=== PATIENT | male | born 1950 | race Caucasian/White ===

== ENCOUNTER 2023-08-21 15:30 | Inpatient (IN) | payer MEDICARE, OTHER, SELFPAY ==
[2023-08-21] VITALS (31 sets, daily range): BP systolic 133–181; BP diastolic 82–97; PULSE 46–66; TEMP 36.9–37.1; O2SAT 97–100; BMI 23.0; BMI 22.7
--- NOTE | 2023-08-21 15:42 | ECG_ITS ---
[facility] Test Date: 2023-08-21 Pat Name: Mike Izaguirre Department: Room: - Gender: Male [employer]: : 1950 Requested By: JANA LEWIS Order Number: [id number] Reading MD: PRAMOD SQUIRES Measurements Intervals Rodney Rate: 47 P: 47 ID: 170 QRS: 84 QRSD: 94 T: 74 QT: 428 QTc: 392 Interpretive Statements 1130 Sinus bradycardia 9150 abnormal ECG No previous ECG available for comparison Electronically Signed On 08-21-2023 18:38:18 EDT by PRAMOD SQUIRES
--- NOTE | 2023-08-21 15:42 | CT_ITS ---
The [address] [address] Patient Name: MAGNOLIA HI MRN: [id number] date: 1950 Sex: M Assigned Patient Location: ER Current Patient Location: ER Accession/Order Number: [id number] Exam Date: 08/21/2023 16:31 Report Date: 08/21/2023 17:26 At the request of: ANDERSON ATWOOD Procedure: CT head/brain wo con EXAM: CT head/brain wo con HISTORY: Dizziness. TECHNIQUE: Axial CT scans through the head were obtained without IV contrast administration. Dose reduction techniques were achieved by using: automated exposure control and/or adjustment of mA and /or kV according to patient size and/or the use of an iterative reconstruction technique. COMPARISON: None. FINDINGS: The cerebral hemispheres have normal white and lopez matter and corticomedullary differentiation. To the limit of CT, the posterior fossa appears unremarkable. The ventricular system and cortical sulci are normal for the patient's age. No area of abnormal mass-effect or edema or intracranial hemorrhage. The visualized orbits show no abnormal mass. The visualized paranasal sinuses show no air-fluid level. Mastoid air cells are clear. CT/CT head/brain wo con IMPRESSION: No acute intracranial process. Electronically authenticated by: DAVID JOHNSTON Date: 08/21/2023 17:26
[2023-08-21] MEDS: 0.9 % SODIUM CHLORIDE 1,000 ML 1000 ML IV (15:50)
[2023-08-21] MEDS: DIAZEPAM 10 MG/2 ML SYRINGE 5 MG IV (15:51)
--- NOTE | 2023-08-21 15:53 | ED_ITS ---
HPI - Dizziness General Chief Complaint: Dizziness Stated Complaint: DIZZINESS/ GENERAL WEAKNESS Time Seen by Provider: 08/21/23 15:32 Source: patient Mode of arrival: ambulance Limitations: no limitations History of Present Illness HPI Narrative: Patient presents to ED complaining of dizziness. He states last Saturday he started with some vertigo symptoms. He has a history of M?ni?re's disease and states he can usually feel it coming on. Last Saturday it started mild and today its gotten much worse. He did talk to his doctor who prescribed him Valium and something else but he was not sure exactly what it was. He does complain of decreased hearing out of the left ear and feeling like it may be blocked up. He has been nauseous and had vomiting with the dizziness since then. He said he feels better laying flat. No fevers no chest pain or shortness of breath. He denies any neurological deficits such as difficulty with speech or any extremity weakness. He said he was diagnosed with M?ni?re's disease a long time ago, He cannot remember the last time he had any imaging of his head. Related Data Home Medications ?Medication ?Instructions ?Recorded ?Confirmed diazepam 5 mg tablet 5 mg PO DAILY 08/21/23 08/21/23 triamterene 37.5 1 tab PO DAILY 08/21/23 08/21/23 mg-hydrochlorothiazide 25 mg tablet Allergies Allergy/AdvReac Type Severity Reaction Status Date / Time No Known Drug Allergies Allergy Verified 08/21/23 15:32 Review of Systems ROS Status of ROS 10 or more systems reviewed and unremark able except as noted in history and below Exam Narrative Exam Narrative: Time Seen: [] Vital Signs: [Per nurse's notes.] General: [Alert] Skin: [Warm, dry, no rash.] Head: [Normocephalic, atraumatic.] Neck: [Supple, trachea midline.] Eye: [Pupils are equal, round and reactive to light, extraocular movements are intact, normal conjunctiva.] Ears, nose, mouth and throat: oral mucosa moist. Cardiovascular: [Regular rate and rhythm, no murmur.] Respiratory: [Lungs are clear to auscultation, respirations are non-labored, breath sounds are equal.] Chest wall: [No tenderness, no deformity.] Gastrointestinal: [Soft, nontender, non distended, normal bowel sounds.] K: 5 out of 5 muscle strength x 4 extremities no calf pain or edema Lymphatics: [No lymphadenopathy.] Psychiatric: [Cooperative, appropriate mood & affect.] Neurological: [Alert and oriented to person, place, time, and situation, no focal neurological deficit observed.] Constitutional Vital Signs, click to edit/add: Last Vital Signs Temp 98.4 F 08/21/23 15:33 Pulse 53 L 08/21/23 15:33 Resp 18 08/21/23 15:33 BP 160/90 H 08/21/23 15:33 Pulse Ox 99 08/21/23 15:33 O2 Del Method Room Air 08/21/23 15:33 Course Vital Signs Vital signs: Vital Signs Temperature 98.4 F 08/21/23 15:33 Pulse Rate 53 L 08/21/23 15:33 Respiratory Rate 18 08/21/23 15:33 Blood Pressure 160/90 H 08/21/23 15:33 Pulse Oximetry 99 08/21/23 15:33 Oxygen Delivery Method Room Air 08/21/23 15:33 Temperature 98.4 F 08/21/23 15:33 Pulse Rate 53 L 08/21/23 15:33 Respiratory Rate 18 08/21/23 15:33 Blood Pressure 160/90 H 08/21/23 15:33 Pulse Oximetry 99 08/21/23 15:33 Oxygen Delivery Method Room Air 08/21/23 15:33 MDM - Dizziness MDM Narrative Medical decision making narrative: Patient's labs show a decreased potassium and calcium. He does report that he has not been able to eat and drink much because of his dizziness causing so much vomiting. He also had slightly low blood sugar at 69. He said he feels may be slightly better after the IV Valium and fluids and was able to sit up a little bit once I sat him up to about 45 degrees he started to get woozy and dizzy again. Given the fact that his potassium and calcium are low as well as his sugar being borderline, I will admit him to the hospital for IV fluids, IV medication to help control the dizziness, and replacement of his potassium and calcium. I spoke to Vanna who agrees with the care plan. Patient is comfortable care plan and will be admitted inpatient to med/tele. NIH scale 0 Differential Diagnosis Differential diagnosis: Likely benign paroxysmal positional vertigo, cerebrovascular accident, acute vestibular neuronitis and transient cerebral ischemia Medical Records Attestation: I reviewed the patient's medical records. Lab Data Attestation: I reviewed the patient's lab results. Labs: Lab Results 08/21/23 Range/Units 16:26 WBC 7.9 (4.0-11.0) 10^3/uL RBC 3.25 L (4.70-6.10) 10^6/uL Hgb 10.2 L (14.0-18.0) g/dL Hct 29.0 L (42.0-54.0) % MCV 89.2 (80.0-94.0) fL MCH 31.4 (25.9-34.0) pg MCHC 35.2 (29.9-35.2) g/dL RDW 12.1 (11.0-15.0) % Plt Count 115 L (150-450) 10^3/uL MPV 8.7 L (9.5-13.5) fL Neut % (Auto) 90.6 H (43.0-75.0) % Lymph % (Auto) 5.7 L (20.5-60.0) % [place] % (Auto) 3.0 (1.7-12.0) % Eos % (Auto) 0.0 L (0.9-7.0) % Baso % (Auto) 0.1 L (0.2-2.0) % Neut # (Auto) 7.1 H (1.4-6.5) 10^3/uL Lymph # (Auto) 0.5 L (1.2-3.8) 10^3/uL [place] # (Auto) 0.2 L (0.3-0.8) 10^3/uL Eos # (Auto) 0.0 (0.0-0.7) 10^3/uL Baso # (Auto) 0.0 (0.0-0.1) 10^3/uL Abs Immat Gran (auto) 0.05 H (0.00-0.03) 10^3/uL Imm/Tot Granulo (auto) 0.6 H (0.0-0.5) % Sodium 144 (136-145) mmol/L Potassium 2.5 L* (3.5-5.1) mmol/L Chloride 117 H (98-107) mmol/L Carbon Dioxide 18.9 L (21.0-32.0) mmol/L Anion Gap 10.6 BUN 12.0 (7.0-18.0) mg/dL Creatinine 0.45 L (0.70-1.30) mg/dL Est GFR ( Amer) >60 (>=60) Est GFR (Non-Af Amer) >60 (>=60) BUN/Creatinine Ratio 26.7 Glucose 69 L (74-106) mg/dL Calcium 5.3 L* (8.5-10.1) mg/dL Total Bilirubin 0.5 (0.2-1.0) mg/dL AST 9 L (15-37) U/L ALT 13 L (16-63) U/L Alkaline Phosphatase 35 L (46-116) U/L Troponin I High Sens 5.8 (4.0-76.1) pg/mL Total Protein 3.5 L (6.4-8.2) g/dL Albumin 1.8 L (3.4-5.0) g/dL Globulin 1.7 g/dL Albumin/Globulin Ratio 1.[address] scan - head: Radiologist's impression: ITS Impressions Head CT 08/21/23 15:42 IMPRESSION: No acute intracranial process. Electronically authenticated by: DAVID JOHNSTON Date: 08/21/2023 17:26 ECG Data Attestation: I personally reviewed and interpreted this ECG as follows: Interpretation: EKG INTERPRETATION Time: []1552 Rate: []47 Rhythm: _ []Sinus bradycardia ST segments: _ []No acute ST elevation or depression T waves: _ [] Ectopy: _ [] P wave/VT interval: _ [] QRS interval: _ [] QT interval: _ [] Comparison: _ [] Comparison EKG date: [] Performed by: [self] Discharge Plan Discharge Chief Complaint: Dizziness Clinical Impression: Vertigo, Hypokalemia, Hypocalcemia Patient Disposition: Admitted As Inpatient Time of Disposition Decision: 18:23 Condition: Fair Prescriptions / Home Meds: No Action triamterene-hydrochlorothiazid 37.5-25 mg tablet 1 tab PO DAILY diazepam 5 mg tablet 5 mg PO DAILY Print Language: Hebrew Referrals: JANA LEWIS [Primary Care Provider] - 1 week
[2023-08-21 16:34] LABS: Basophils Percent Auto 0.1 % (0.2-2.0); Hemoglobin 10.2 g/dL (14.0-18.0); Immature Granulocytes Abs Auto 0.05 10^3/uL (0.00-0.03); Immature Granulocytes Pct Auto 0.6 % (0.0-0.5); Lymphocytes Absolute Auto 0.5 10^3/uL (1.2-3.8); Lymphocytes Percent Auto 5.7 % (20.5-60.0); Mean Corpuscular HGB Conc 35.2 g/dL (29.9-35.2); Mean Corpuscular Hemoglobin 31.4 pg (25.9-34.0); Mean Corpuscular Volume 89.2 fL (80.0-94.0); Mean Platelet Volume 8.7 fL (9.5-13.5); Monocytes Absolute Auto 0.2 10^3/uL (0.3-0.8); Neutrophils Absolute Auto 7.1 10^3/uL (1.4-6.5); Neutrophils Percent Auto 90.6 % (43.0-75.0); Platelet Count 115 10^3/uL (150-450); Red Blood Count 3.25 10^6/uL (4.70-6.10); Red Cell Distribution Width 12.1 % (11.0-15.0); White Blood Count 7.9 10^3/uL (4.0-11.0)
[2023-08-21 16:50] LABS: Alanine Aminotransferase 13 U/L (16-63); Albumin Globulin Ratio 1.1; Albumin Level 1.8 g/dL (3.4-5.0); Alkaline Phosphatase 35 U/L (46-116); Anion Gap 10.6; Aspartate Amino Transferase 9 U/L (15-37); BUN Creatinine Ratio 26.7; Bilirubin Total 0.5 mg/dL (0.2-1.0); Carbon Dioxide 18.9 mmol/L (21.0-32.0); Chloride 117 mmol/L (98-107); Estimated GFR (African America >60 (>=60); Estimated GFR (Non-African Ame >60 (>=60); Globulin 1.7 g/dL; Glucose 69 mg/dL (74-106); Sodium 144 mmol/L (136-145); Total Protein 3.5 g/dL (6.4-8.2); Troponin I High Sensitivity 5.8 pg/mL (4.0-76.1)
[2023-08-21 16:52] LABS: Calcium 5.3 mg/dL (8.5-10.1); Potassium 2.5 mmol/L (3.5-5.1)
[2023-08-21] MEDS: POTASSIUM CHLORIDE 40 MEQ in 0.9 % SODIUM CHLORIDE 250 ML 67.5 MEQ IV (17:26)
[2023-08-21] MEDS: CALCIUM CARBONATE 600 MG/VITAMIN D3 400 IU TABLET 2 TAB PO (17:34)
[2023-08-21 19:16] LABS: Glucometer 95 mg/dL (74-106)
[2023-08-21] MEDS: MAGNESIUM SULFATE IN WATER 2 GM/50 ML PREMIX IV (20:44)
[2023-08-21] MEDS: PROMETHAZINE HCL 25 MG TABLET PO (20:45)
[2023-08-21] MEDS: ENOXAPARIN SODIUM 40 MG/0.4 ML SYRINGE SUBQ (20:45)
[2023-08-21] MEDS: ONDANSETRON PF 4 MG/2 ML VIAL IV (20:45)
[2023-08-21] MEDS: POTASSIUM CHLORIDE/D5-0.45NACL 1,000 ML 100 MEQ IV (20:46)
[2023-08-22] VITALS (14 sets, daily range): BP systolic 114–145; BP diastolic 71–78; PULSE 46–86; TEMP 36.7–36.9; O2SAT 95–96
[2023-08-22] MEDS: POTASSIUM CHLORIDE/D5-0.45NACL 1,000 ML 100 MEQ IV ×2 (06:00→08:08)
[2023-08-22 07:40] LABS: Basophils Percent Auto 0.4 % (0.2-2.0); Eosinophils Absolute Auto 0.1 10^3/uL (0.0-0.7); Eosinophils Percent Auto 0.6 % (0.9-7.0); Hematocrit 43.7 % (42.0-54.0); Hemoglobin 15.3 g/dL (14.0-18.0); Immature Granulocytes Abs Auto 0.02 10^3/uL (0.00-0.03); Immature Granulocytes Pct Auto 0.2 % (0.0-0.5); Lymphocytes Absolute Auto 2.4 10^3/uL (1.2-3.8); Lymphocytes Percent Auto 26.5 % (20.5-60.0); Mean Corpuscular Hemoglobin 30.9 pg (25.9-34.0); Mean Corpuscular Volume 88.3 fL (80.0-94.0); Mean Platelet Volume 9.1 fL (9.5-13.5); Monocytes Absolute Auto 0.7 10^3/uL (0.3-0.8); Neutrophils Absolute Auto 5.8 10^3/uL (1.4-6.5); Neutrophils Percent Auto 64.3 % (43.0-75.0); Platelet Count 197 10^3/uL (150-450); Red Blood Count 4.95 10^6/uL (4.70-6.10); Red Cell Distribution Width 12.3 % (11.0-15.0); White Blood Count 9.1 10^3/uL (4.0-11.0)
[2023-08-22 08:42] LABS: Alanine Aminotransferase 25 U/L (16-63); Albumin Globulin Ratio 1.1; Albumin Level 3.6 g/dL (3.4-5.0); Alkaline Phosphatase 66 U/L (46-116); Anion Gap 11.9; Aspartate Amino Transferase 17 U/L (15-37); BUN Creatinine Ratio 15.9; Bilirubin Total 0.9 mg/dL (0.2-1.0); Calcium 10.3 mg/dL (8.5-10.1); Carbon Dioxide 23.2 mmol/L (21.0-32.0); Chloride 105 mmol/L (98-107); Estimated GFR (African America >60 (>=60); Estimated GFR (Non-African Ame >60 (>=60); Globulin 3.3 g/dL; Glucose 124 mg/dL (74-106); Magnesium 2.3 mg/dL (1.8-2.4); Phosphorus 3.9 mg/dL (2.6-4.7); Potassium 4.1 mmol/L (3.5-5.1); Sodium 136 mmol/L (136-145); Total Protein 6.9 g/dL (6.4-8.2)
--- NOTE | 2023-08-22 10:43 | PM.HP ---
HPI H&P: HPI History of Present Illness Chief complaint: DIZZINESS, Hypokalemia, Vertigo, Vomiting Narrative: 73 y/o male to ER with dizziness and weakness. History of Meniere's disease diagnosed years ago but this feels different. Developed vertigo and room spinning. Left ear feels plugged and hearing decreased. Contacted PCP and gave valium. Reports in past typically would lay down for a day or so and symptoms would resolve. Continued dizziness and much worse when turn head or up and moving. To chiropractor and felt like left eustachian tube plugged. Manipulated and improved for few hours then ear plugged again. Severe nausea but no emesis. Decreased oral intake and to ER. Labs showed low potassium and low calcium. CT head negative. Admitted for treatment. Started IV fluids and replaced electrolytes. Unchanged this am. Opioid HPI Opioid Management Most Recent Pain and Opioid Data: Last Pain Scale 0 08/22/23 07:28 Last Pain Assessment 08/22/23 10:05 Last ORT Total Score 3 08/21/23 19:49 Last ORT Risk Category Low Risk 08/21/23 19:49 Review of Systems ROS Constitutional Denies: fever, chills or fatigue Cardiovascular Denies: chest pain, palpitations or edema Respiratory Denies: shortness of breath, cough or wheezing Gastrointestinal Reports: nausea; Denies: vomiting or diarrhea Genitourinary Denies: painful urination Neurological Reports: vertigo [facility] Medical History (Updated 08/22/23 @ 08:18 by Jet Hackett MD) Deviated nasal septum ?J34.2 - Deviated nasal septum (ICD-10) Knee arthropathy ?M17.10 - Unilateral primary osteoarthritis, unspecified knee (ICD-10) Family History Mother Alzheimer dementia Social History (Updated 08/21/23 @ 22:47 by Kya Stokes RN) Within the past year, how often did you have a drink containing alcohol: never Within the past year, how often did you have six or more drinks on one occasion: never Score interpretation: A score less than 4 is consistent with normal alcohol consumption. Smoking status: Never smoker Second hand tobacco smoke exposure: No Non-prescribed substance use: denies use Highest level of school completed/degree received: high school graduate Are you now , , , , never or living with a partner: In a typical week, how many times do you talk on the telephone with family, friends, or neighbors: 3 or more times per week How often do you get together with friends or relatives: once per week How often do you attend [employer]ian or sikh services: 1-3 times per year Little interest or pleasure in doing things: not at all Feeling down, depressed, or hopeless: not at all Feel stressed/tense/nervous/anxious/difficulty sleeping: only a little Due to disability, difficulty making decisions: No Do you think of yourself as: straight/heterosexual Gender Identity: male Meds Home Medications and Allergies Home Medications ?Medication ?Instructions ?Recorded ?Confirmed ?Type diazepam 5 mg tablet 5 mg PO DAILY 08/21/23 08/21/23 History triamterene 37.5 1 tab PO DAILY 08/21/23 08/21/23 History mg-hydrochlorothiazide 25 mg tablet Allergies Allergy/AdvReac Type Severity Reaction Status Date / Time No Known Drug Allergies Allergy Verified 08/21/23 15:32 Exam Constitutional Vital Signs, click to edit/add: Last Vital Signs Temp 98.0 F 08/22/23 07:28 Pulse 55 L 08/22/23 09:58 Resp 16 08/22/23 07:28 BP 120/74 08/22/23 07:28 Pulse Ox 95 08/22/23 07:28 O2 Del Method Room Air 08/22/23 07:28 Documenting provider has reviewed patient's vital signs: yes Common normals: no apparent distress, oriented x3 and alert HENMT Common normals: normocephalic Tympanic membrane: TM abnormal (TM clear but bulging with fluid bilaterally) Eye Common normals: PERRL and EOMs intact bilaterally Respiratory Common normals: normal respiratory effort and clear to auscultation bilaterally Cardio Common normals: regular rate, regular rhythm, no gallops, no murmurs and no rub GI Common normals: Normal to inspection, nondistended, normoactive bowel sounds present and non-tender Extremity Common normals: no pedal edema Results Labs Labs: Short CBC 08/21/23 08/22/23 Range/Units 16:26 07:33 WBC 7.9 9.1 (4.0-11.0) 10^3/uL Hgb 10.2 L 15.3 (14.0-18.0) g/dL Hct 29.0 L 43.7 (42.0-54.0) % Plt Count 115 L 197 (150-450) 10^3/uL BMP 08/21/23 08/22/23 16:26 07:33 Sodium 144 136 Potassium 2.5 L* 4.1 Chloride 117 H 105 Carbon Dioxide 18.9 L 23.2 BUN 12.0 14.0 Creatinine 0.45 L 0.88 Glucose 69 L 124 H Calcium 5.3 L* 10.3 H Liver Function 08/21/23 08/22/23 Range/Units 16:26 07:33 Total Bilirubin 0.5 0.9 (0.2-1.0) mg/dL AST 9 L 17 (15-37) U/L ALT 13 L 25 (16-63) U/L Alkaline Phosphatase 35 L 66 (46-116) U/L Albumin 1.8 L 3.6 (3.4-5.0) g/dL Assessment and Plan Assessment and Plan (1) Hypocalcemia: (2) Hypokalemia: (3) Vertigo: (4) Nausea & vomiting: (5) Meniere disease: (6) Benign essential hypertension: Plan History of Menier's disease but reports symptoms different. Possible eustachian tube dysfunction and middle ear dysfunction. Start solu-medrol. Use meclizine PRN. Start PT for vestibular rehab. Resume home medication. Labs show normal electrolytes this am. If improved possibly home today or tomorrow.
--- NOTE | 2023-08-22 11:02 | CM.NOTE ---
09:[address]. [address] Hackett discussed labs and treatment plan to add Meclizine & Steroids, have PT see for Vestibular therapy. Dr Hackett also discussed that he should followup with ENT as outpatient and possible discharge later. Mike verbalized understanding.
[2023-08-22] MEDS: METHYLPREDNISOLONE SOD SUCC PF 125 MG/2 ML VIAL 60 MG IVP ×2 (11:20→17:06)
--- NOTE | 2023-08-22 13:30 | SWNOTE1 ---
SW met with pt to discuss dc needs. Pt lives at home with . Pt's and daughter in room during assessment. Pt voiced he has been dizzy for around 7 days. When he goes to stand up sometimes he gets lightheaded and feels dizzy. Pt then spoke about his hearing in left ear. Pt's and daughter also spoke about this. He stated he has always had trouble in right ear, but now left ear he hears buzzing and sometimes a louder sound. Pt and family asked about a ENT. As SW was talking to them about this nursing came in room as well. We do not have an ENT that comes to hospital for consults. Family was asking about a consult / follow up. For clarification, family would like pt to follow up with ENT. Nursing did reach out to doctor and he is alright with us trying to scheduled an apt with an ENT after he is discharged from hospital. Family has been trying but they are 1-2 months out. They would like us to try to [facility] in [place]. Nursing will pass along to private secretary for her to call and try to schedule. SW to stop back in once pt works with physical therapy. SW spoke to them about possibility of HH. SW spoke to physical therapy and pt did great, PT note picking him up. SW to stop back in and speak with family. Important Message from Medicare reviewed and discussed with patient. Pt. verbalized understanding and signed the form. Original given to patient and copy placed in patient?s chart.
--- NOTE | 2023-08-22 15:26 | SWNOTE1 ---
SW cheked back in with pt and family. They voiced PT went great and do not feel they need HH at this time. Daughter mentioned outpt PT. Pt is going to see how he does at home and if he needs it, they will contact PCP.
--- NOTE | 2023-08-23 13:10 | CM.DCFOLLOWU ---
Person spoke with: patient How are you feeling? well How is your pain? none Did you understand your discharge instructions? yes Do you have any questions about your discharge instructions? no Were you given any prescriptions at discharge? yes Were you able to get your prescriptions filled? yes Do you understand how to take your medications as ordered? yes Do you have any questions about your follow up appointment and do you plan to keep your follow up appointment? no questions, is taking care of follow up appointments Is there anything else that you would like to discuss? no Questions/Comments/Concerns/Other: none
== END 2023-08-22 18:01 | disposition home or self-care (01) | DRG 641 ==
LOC: ER 18:23 → MS 19:41
PROVIDERS: Admitting Provider Family Medicine; Emergency Provider Emergency Medicine; PCP Family Medicine; Visit Provider Family Medicine
DX: E87.6 Hypokalemia (principal); E83.51 Hypocalcemia; R11.2 Nausea with vomiting, unspecified; I10 Essential (primary) hypertension; H81.09 Meniere's disease, unspecified ear
CPT/HCPCS: 36415; 70450; 80053; 83735; 84100; 84484; 85025; 93005; 94761; 96361; 96365; 96366; 96368; 96372; 96375; 96376; 97161; 99285; J1650; J2405; J2919; J3360; J3475; J3480; Q0169